=== PATIENT | female | born 1930 | race Caucasian/White ===

== ENCOUNTER → 2018-08-26 | Outpatient (CLI) | payer MEDICARE, BC ==
--- NOTE | 2018-08-26 14:28 | RAD ---
CLINICAL HISTORY: HILAR MASS INDICATION: Initial evaluation. COMPARISON: None available. TECHNIQUE: Location of scan: [facility] Radiopharmaceutical Dose: 17.58 mCi F-18 FDG intravenous Blood glucose at time of study: 83 FDG uptake time = 60 minutes. Images were obtained from the mid head to the mid thighs. A low dose, noncontrast CT study was performed for the purpose of attenuation correction and anatomic localization. FINDINGS: Head and Neck: Regions of increased metabolic activity within the neck without discrete soft tissue anatomic correlate likely from brown fat. Otherwise physiologic activity in the head and neck. Chest: Region of increased metabolic activity within the right suprahilar region is seen measuring 8.3 x 3 cm with an SUV max of 23.9. There our associated spiculated margins on the pericaval CT portion. 1.6 cm groundglass nodularity in the middle lobe is seen with a maximum SUV of 5.9. No definite hypermetabolic lymphadenopathy is identified. Abdomen and Pelvis: A left adrenal nodule measures 2.1 cm with an SUV max of 3.6. Physiologic activity within the liver, bowel and renal collecting system. Skeletal: Bilateral hip joint degenerative changes are seen. Physiologic activity within the osseous structures. Reference SUV Values: Mediastinal SUV Max: 3.5 Liver SUV Max: 4 IMPRESSION: 1. Increased metabolic activity is seen within the right suprahilar region with associated soft tissue density and nodularity. Although this may represent malignancy, infectious//inflammatory process may also result in increased metabolic activity. However given the somewhat nodular morphologic appearance, malignancy is favored. 2. Ground glass opacity in the middle lobe also has increased metabolic activity of 5.9. Again although this may be from malignancy/metastatic focus, infectious/inflammatory process may have similar appearance. 3. Numerous foci of uptake within the fat of the head and neck region consistent with brown fat activation. Radiation Dosimetry: The radiopharmaceutical used for this exam delivers approximately 0.7 mSv/mCi (70 mRem/mCi) Source: ICRP Publication 106
== END | disposition home or self-care (01) ==
LOC: PETSC 10:29
PROVIDERS: ATTEND Internal Medicine Pulmonary Disease
DX: R91.8 Other nonspecific abnormal finding of lung field (principal); E27.8 Other specified disorders of adrenal gland; Z85.118 Personal history of other malignant neoplasm of bronchus and lung
CPT/HCPCS: 78815; A9552

== ENCOUNTER → 2018-08-26 | Outpatient (CLI) | payer MEDICARE, BC | END | disposition home or self-care (01) | LOC: PMGWOUND 08:58 | PROVIDERS: ATTEND Emergency Medicine Undersea and Hyperbaric Medicine | DX: L89.221 Pressure ulcer of left hip, stage 1 (principal); L89.311 Pressure ulcer of right buttock, stage 1; M54.9 Dorsalgia, unspecified; I10 Essential (primary) hypertension; G89.29 Other chronic pain; M25.562 Pain in left knee; M25.561 Pain in right knee; E03.9 Hypothyroidism, unspecified; I89.0 Lymphedema, not elsewhere classified; M19.90 Unspecified osteoarthritis, unspecified site; H91.90 Unspecified hearing loss, unspecified ear; Z87.891 Personal history of nicotine dependence; Z85.118 Personal history of other malignant neoplasm of bronchus and lung | CPT/HCPCS: 99214; G0463 ==

== ENCOUNTER → 2018-09-06 | Outpatient (CLI) | payer MEDICARE, BC | END | disposition home or self-care (01) | LOC: PMGWOUND 08:06 | PROVIDERS: ATTEND Emergency Medicine Undersea and Hyperbaric Medicine | DX: E11.622 Type 2 diabetes mellitus with other skin ulcer (principal); L89.311 Pressure ulcer of right buttock, stage 1; L98.411 Non-pressure chronic ulcer of buttock limited to breakdown of skin; L89.153 Pressure ulcer of sacral region, stage 3; L98.491 Non-pressure chronic ulcer of skin of other sites limited to breakdown of skin; E11.621 Type 2 diabetes mellitus with foot ulcer; L89.614 Pressure ulcer of right heel, stage 4; L97.411 Non-pressure chronic ulcer of right heel and midfoot limited to breakdown of skin; E11.69 Type 2 diabetes mellitus with other specified complication; M86.172 Other acute osteomyelitis, left ankle and foot; E11.36 Type 2 diabetes mellitus with diabetic cataract; E11.42 Type 2 diabetes mellitus with diabetic polyneuropathy; I12.0 Hypertensive chronic kidney disease with stage 5 chronic kidney disease or end stage renal disease; E11.22 Type 2 diabetes mellitus with diabetic chronic kidney disease; N18.6 End stage renal disease; L84 Corns and callosities; G89.29 Other chronic pain; G47.30 Sleep apnea, unspecified; I89.0 Lymphedema, not elsewhere classified; H91.90 Unspecified hearing loss, unspecified ear; E03.9 Hypothyroidism, unspecified; K21.9 Gastro-esophageal reflux disease without esophagitis; M19.90 Unspecified osteoarthritis, unspecified site; F32.9 Major depressive disorder, single episode, unspecified; Z85.528 Personal history of other malignant neoplasm of kidney; Z87.891 Personal history of nicotine dependence; Z85.118 Personal history of other malignant neoplasm of bronchus and lung | CPT/HCPCS: 99215 ==